=== PATIENT | male | born 1980 | race Two or more races ===

== ENCOUNTER 2019-09-08 17:58 | Emergency (ER) | payer SELFPAY ==
[~2019-09-08] VITALS: Ht 170.2 cm; Wt 80.0 kg
[2019-09-08 19:24] VITALS: BP 154/101
--- NOTE | 2019-09-08 20:05 | NUR ---
PT ABLE TO AMBULATE STEADILY IN HALLWAY. PT STATED HEIS READY TO GO. ERP AWARE.
== END 2019-09-08 20:20 | disposition home or self-care (01) ==
LOC: ED 20:14
DX: T42.4X1A Poisoning by benzodiazepines, accidental (unintentional), initial encounter (principal); Y92.9 Unspecified place or not applicable
CPT/HCPCS: 99283